=== PATIENT | male | born 1985 | race Caucasian/White ===

== ENCOUNTER 2019-02-21 14:59 | Observation (INO) | payer BC ==
[~2019-02-21] VITALS: Ht 182.9 cm; Wt 113.7 kg
[~2019-02-21 14:59] MED LIST: LORTAB 5/500 501 TAB PO
[2019-02-21 15:30] VITALS: BP 138/87; PULSE 74; TEMP 97.8
[2019-02-21] MEDS ORDERED: FLOMAX 0.40.4 MG/CAP PO (15:42)
[2019-02-21] MEDS ORDERED: NORCO 325 MG-51 TAB PO (15:42)
--- NOTE | 2019-02-21 15:44 | NUR ---
TO RM 3 AT 1505- CALL LIGHT IN REACH FRIEND OR SISTER WILL PICK HIM UP AFTER PROCEDURE
[2019-02-21 19:30] VITALS: BP 117/84; PULSE 72
--- NOTE | 2019-02-21 19:30 | NUR ---
Received from PACU, 33 year old male post left stent placement after laser of stone. Is alert and oriented x4. Has IVF to left hand without redness or swelling. Up to void, red colored urine of 200cc.
[2019-02-21 19:44] VITALS: BP 137/92; PULSE 67
--- NOTE | 2019-02-21 19:45 | NUR ---
[place] sandwich provided. Patient denies nausea. Asking when he can discharge.
[2019-02-21 20:00] VITALS: BP 137/98; PULSE 69
[2019-02-21 20:15] VITALS: BP 145/78; PULSE 78; TEMP 98.2
--- NOTE | 2019-02-21 20:15 | NUR ---
Medicated with Percocet 1 tab po for left groin pain 02/11. Has eaten all of diet without nausea or vomiting.
--- NOTE | 2019-02-21 20:30 | NUR ---
Reviewed discharge instructions with patient. Given RX for [place] #[id number], Pyridium and follow up appointment in [place], to call for time. SL removed, angiocath intact.
--- NOTE | 2019-02-21 20:40 | NUR ---
Patient discharged via ambulatory status to private car. Personal belongings sent with patient as well as copy of discharge instructions.
== END 2019-02-21 20:40 | disposition home or self-care (01) ==
LOC: SDCO 14:59 → SURG 15:00 → SDCO 17:30 → SURG 20:40
PROVIDERS: ADMIT Urology
DX: N20.1 Calculus of ureter (principal); N41.1 Chronic prostatitis; F17.210 Nicotine dependence, cigarettes, uncomplicated; Z83.3 Family history of diabetes mellitus; Z82.49 Family history of ischemic heart disease and other diseases of the circulatory system; Z84.1 Family history of disorders of kidney and ureter
CPT/HCPCS: C1769; C1894; C2617; J0690; J1100; J1885; J2405; J2704; J3010; J7120; Q9967

== ENCOUNTER 2019-02-24 13:55 | Day surgery (SDC) | payer BC ==
[~2019-02-24] VITALS: Ht 182.9 cm; Wt 111.3 kg
[~2019-02-24 13:55] MED LIST changes: +FLOMAX 0.40.4 MG/CAP PO; +NORCO 325 MG-51 TAB PO
[2019-02-24 14:15] VITALS: BP 130/88; PULSE 98; TEMP 98.2
[2019-02-24] MEDS ORDERED: PYRIDIUM 100MG100 MG PO (14:15)
[2019-02-24 18:35] VITALS: BP 132/91; PULSE 73; TEMP 97.6
--- NOTE | 2019-02-24 18:35 | NUR ---
PATIENT ARRIVED TO ROOM 321-2 VIA CART FROM PACU. PATIENT SETTELED INTO ROOM. PATIENT IS A&OX4. PATIENT TOLERATING CLEAR LIQUIDS. POST-OP VSS. FRIEND PRESENT AT THE BEDSIDE. CALL LIGHT WITHIN REACH. PATIENT DENIES ANY NEEDS AT THIS TIME.
[2019-02-24 18:50] VITALS: BP 131/97; PULSE 73; TEMP 98
--- NOTE | 2019-02-24 19:00 | NUR ---
REPORT GIVEN TO VERONICA WARREN.
--- NOTE | 2019-02-24 19:00 | NUR ---
Report received. Assumed care for shift stacker. Assessment complete. VS stable. Has voided and tolerating PO. Denies pain. Significant other here for transportation. Requesting to leave [place]. Discussed continuing VSx3 more and DC home if stable. Verbalizes understanding. Will monitor.
[2019-02-24 19:10] VITALS: BP 128/96; PULSE 76
[2019-02-24 19:25] VITALS: BP 126/89; PULSE 82; TEMP 98
[2019-02-24 20:00] VITALS: BP 128/68; PULSE 68; TEMP 98
--- NOTE | 2019-02-24 20:00 | NUR ---
VS have remained stable. Tolerating PO without nausea. Denies pain. Voided x2. Discharge instructions given both verbal and handwritten. Prescriptions given. Denies questions or concerns. Escorted off [place]phy with spouse in stable condition by this nurse.
[2019-02-25] VITALS: BP 131/97; PULSE 73; TEMP 97.8
== END 2019-02-24 20:00 ==
LOC: SDCO 13:55 → SURG 19:06 → SDCO 20:00
DX: N20.1 Calculus of ureter (principal); Z87.442 Personal history of urinary calculi; N41.1 Chronic prostatitis; Z79.899 Other long term (current) drug therapy; F17.210 Nicotine dependence, cigarettes, uncomplicated
CPT/HCPCS: OP; C1769; J0690; J1100; J1885; J1940; J2405; J2704; J3010; J7120